=== PATIENT | male | born 1985 | race Caucasian/White ===

== ENCOUNTER 2022-09-24 11:38 | Emergency (ER) | payer BC, SELFPAY ==
[2022-09-24 11:42] VITALS: BP 129/80; PULSE 64; RESP 16; TEMP 36.6; O2SAT 100
--- NOTE | 2022-09-24 13:15 | ED.GENADULT ---
HPI - General Adult General Chief complaint: Unspecified Stated complaint: hemorrhoid pain Time Seen by Provider: 09/24/22 12:57 History of Present Illness HPI narrative: Patient is a 36-year-old male who presents ER with pain around his rectum. Has hemorrhoid hemorrhoids. To schedule follow-up with Dr. Velasquez in 2 days. Had previous hemorrhoids that cannot be excised. Reports he recently played some role hockey which causes pop up. Previously it had been because he had not picked up a heavy case of water bottles, and then prior to that it occurred after doing a tough mudder competition. Related Data Allergies Allergy/AdvReac Type Severity Reaction Status Date / Time Cultivated Oat Pollen Allergy Mild unknown Uncoded 09/24/22 11:40 Review of Systems Constitutional: Constitutional: Reports no additional constitutional complaints Gastrointestinal: Gastrointestinal: Denies abdominal pain, Denies constipation, Denies diarrhea, Denies vomiting and Reports other (Hemorrhoid) Genitourinary: Genitourinary: Reports no additional male genitourinary complaints [facility] Past Medical History Medical History (Updated 09/24/22 @ 20:18 by Daniel Gamble MD) Asthma External hemorrhoid Family History Family History Father Depression Hypertension Family history of elevated blood lipids Family history of diabetes mellitus in first degree relative Family history of premature coronary heart disease Sibling Family history of diabetes mellitus in first degree relative Social History Social History Social History: Single Smoking packs per day: 2 Smoking cigarettes per day: 40.0 Years smoked: 7 Smoking pack-years: 14.00 Smoking status: Former smoker Tobacco type: cigarettes Second hand tobacco smoke exposure: No Smoking end date: 04/01/11 Alcohol intake: current Alcohol use details: Occasionally Substance use: never Substance use type: does not use Lack of Transportation: No Lack of Food: Never True Current Housing: I Have Housing Concerned About Future Housing: No Difficulty Paying Gas/Electric Bills: No Difficulty Paying for Meds: No Currently Unemployed: No Education: Decline to Answer Difficulty w/ Childcare or Family Care: No Living arrangements: with family Additional living arrangements comments: Pt lives with girlfriend Occupation/Education: occupation Gender identity (if verbalized by the patient): Male Sexual Orientation (if Verbalized by the Patient): Straight or Heterosexual Exam Narrative: GENERAL: Well-appearing, well-nourished, and in no acute distress. HEAD: Normocephalic, atraumatic. ENT: Mucous membranes moist. Rectal: Inflamed hemorrhoid at the 6 o'clock position when lying in the left lateral decubitus position. No thrombosis or hemorrhage. EXTREMITIES: Normal range of motion. No edema. SKIN: Warm, dry, no rash. NEURO: Alert and oriented x3. PSYCH: Normal mood and affect. Course Course Emergency Course: Patient will be given topical steroids as that is only treatment he is not use. He has been using Preparation H with lidocaine as well as witch derrick pads and sitz bath's. He has follow-up in 2 days with general surgery. He has not been constipated. Vital Signs Vital signs: Vital Signs Temperature 98 F 09/24/22 11:42 Pulse Rate 64 09/24/22 11:42 Respiratory Rate 16 09/24/22 11:42 Blood Pressure 129/80 09/24/22 11:42 Pulse Oximetry 100 09/24/22 11:42 Oxygen Delivery Room Air 09/24/22 11:42 Temperature 98 F 09/24/22 11:42 Pulse Rate 64 09/24/22 11:42 Respiratory Rate 16 09/24/22 11:42 Blood Pressure 129/80 09/24/22 11:42 Pulse Oximetry 100 09/24/22 11:42 Oxygen Delivery Room Air 09/24/22 11:42 Medical Decision Making Vital Signs Vital Signs: Vital Signs
== END 2022-09-24 13:23 | disposition home or self-care (01) ==
PROVIDERS: Emergency Provider Emergency Medicine; PCP Family Medicine
DX: K64.9 Unspecified hemorrhoids (principal); Z87.891 Personal history of nicotine dependence
CPT/HCPCS: 99283

== ENCOUNTER 2022-10-04 02:25 | Day surgery (SDC) | payer BC, SELFPAY ==
[2022-09-27 10:43] VITALS: BMI 23.6
--- NOTE | 2022-09-27 10:46 | PC.NURSE ---
Report to the Outpatient Waiting Room, entrance under the green pavilion located off [facility], at time 0800 on date 10/04/22. Planned Procedure Time: 1000. Time changes happen often and if your time is changed the preop area will call you the afternoon before. - You and your visitor will be asked to self-screen and do not enter if you have any COVID symptoms. - A mask is optional within the hospital at this time. Patients may have clear liquids (water, carbonated beverages, clear teas, apple juice) until 3 hours prior to surgery with a maximum of 20 ounces. - No food from midnight until time of surgery Take the following medications with a SIP of water the morning of surgery: INHALERS DO NOT STOP ANY OF YOUR OTHER PRESCRIPTION MEDICATIONS PRIOR TO SURGERY ?EXCEPT THE FOLLOWING Medications to discontinue per physician: N/A Date to take last dose: N/A Please no make-up, nail yemeni, hairspray, perfume, deodorant, or body powder the day of surgery. No jewelry (including any body piercings) or valuables the day of surgery, leave them at home. Please take a shower or bath the night before, or the morning of, surgery with an antibacterial soap. Wear comfortable, loose fitting clothing. - Jewelry must be removed prior to entering the operating room. Rings and piercings that are not removed may be cut off. - The hospital will not accept responsibility for valuables. - Please leave all valuables, including medications, at home the day of surgery. If you are going home after surgery, a licensed route sales delivery drivers supervisor must drive you home. - NO public transportation without another adult if you receive anesthesia. - We recommend that an adult stay with you for 24 hours following discharge. - We also recommend that you do not drive, make important decision, drink alcoholic beverages, or take any drugs that were not prescribed by your health care provider for at least 24 hours after your discharge time. Follow any additional instructions given to you from your surgeon. If you or anyone in your household have experienced Covid symptoms in the past week, please notify your surgeon or the nurse liaison at the phone number below for possible testing. Telephone instructions given to PT - TAVON SCHULZ and asked if any additional questions and then verbalized understanding. Patient advised to call surgeon office or pre surgery nurse liaison [phone] if any additional questions.
[2022-10-04] VITALS (9 sets, daily range): BP systolic 104–133; BP diastolic 56–78; PULSE 66–91; RESP 10–16; TEMP 36.6–36.8; O2SAT 96–99
[2022-10-04] MEDS: ACETAMINOPHEN 500 MG TABLET 1000 MG PO (08:25)
[2022-10-04] MEDS: LACTATED RINGERS 1,000 ML 30 ML IV CONT (08:32)
[2022-10-04] MEDS: KETOROLAC 15 MG/ML VIAL (*BKC) IV PUSH ×2 (09:25→10:56)
--- NOTE | 2022-10-04 09:34 | WPDANESEPPF ---
Anes - Initial Pre Proc Eval Procedure: Operation Date: 10/04/22 10:00 Proposed Procedures p Excisional Hemorrhoidectomy - Jluis Velasquez MD Date/Time: 10/04/22 09:34 Surgeon: Jluis Velasquez MD Pre Op Diagnosis: thrombosed internal hemorrhoid Patient Data Age: 36 Gender: M Height: 1.78 m Weight: 76.5 kg Last Vital Signs Temp 98.3 F 10/04/22 08:32 Pulse 66 10/04/22 08:32 Resp 16 10/04/22 08:32 BP 104/72 10/04/22 08:32 Pulse Ox 99 10/04/22 08:32 O2 Del Method Room Air 10/04/22 08:32 Allergies Allergy/AdvReac Type Severity Reaction Status Date / Time Cultivated Oat Pollen Allergy Mild unknown Uncoded 10/04/22 08:08 Home Medications Medication Instructions Recorded Confirmed Type albuterol sulfate 90 mcg/actuation See Rx Instructions .Route 06/06/22 10/04/22 Rx aerosol inhaler .COMPLEX #6.7 grams fluticasone furoate 100 See Rx Instructions .Route 06/06/22 10/04/22 Rx mcg-vilanterol 25 mcg/dose .COMPLEX #60 ea inhalation powder (Breo Ellipta) witch derrick 50 % topical pads 1 pad topical BID PRN skin 08/02/22 09/27/22 Rx (Hemorrhoidal (witch derrick)) irritation #48 ea hydrocortisone 2.5 % topical cream 1 applic RECTAL BID PRN 09/24/22 09/27/22 Rx with perineal applicator hemorrhoids #30 grams (Proctozone-HC) Patient hx anesthesia problems: none Family hx anesthesia problems: none Results Review: All pre-operative results and documents have been reviewed as part of the pre-operative evaluation. [facility] Past Medical History Medical History Asthma External hemorrhoid Family History Family History Father Depression Hypertension Family history of elevated blood lipids Family history of diabetes mellitus in first degree relative Family history of premature coronary heart disease Sibling Family history of diabetes mellitus in first degree relative Social History Social History Social History: Single Smoking packs per day: 1 Smoking cigarettes per day: 20.0 Years smoked: 5 Smoking pack-years: 5.00 Smoking status: Former smoker Tobacco type: cigarettes Second hand tobacco smoke exposure: No Smoking end date: 04/01/12 Alcohol intake: current Alcohol use details: VERY RARE Substance use: current Substance use type: marijuana Lack of Transportation: No Lack of Food: Never True Current Housing: I Have Housing Concerned About Future Housing: No Difficulty Paying Gas/Electric Bills: No Difficulty Paying for Meds: No Currently Unemployed: No Education: Decline to Answer Difficulty w/ Childcare or Family Care: No Living arrangements: with friend(s) Additional living arrangements comments: Pt lives with girlfriend Occupation/Education: occupation Gender identity (if verbalized by the patient): Male Sexual Orientation (if Verbalized by the Patient): Straight or Heterosexual Spiritual care concerns: No Anes - Eval Final PreProcedure Day of Procedure 10/04/22 09:34 Patient weight: normal Heart: regular rate and rhythm Lungs: clear to auscultation Airway: Mallampati scale class II Neurological: alert and oriented Last oral intake: >/= 8 hours ASA classification: II Emergent: no Anesthetic plan: proceed Anesthesia type and monitoring: general ETT and standard monitoring Results Review: All pre-operative results and documents have been reviewed as part of the pre-operative evaluation. Informed Consent: The patient's anesthetic plan and its attendant risks and benefits were discussed with the patient/family/POA. Questions were solicited and answers provided to the satisfaction of the patient/family/POA.
--- NOTE | 2022-10-04 10:08 | WPDHPUPDATE1 ---
History and Physical Update Update Date/Time: 10/04/22 10:08 History and Physical has been reviewed, including an updated exam of the patient. There are NO changes in the patient's condition. Risks, benefits, and alternatives have been discussed and questions answered. Patient agrees to proceed with procedure.
[2022-10-04] MEDS: ceFAZolin 2 GM/D5W 50 ML 2 GM/50 ML BAG IVPB (10:14)
[2022-10-04] MEDS: LIDOCAINE HCL 2% GEL UROJET 10 ML PKG MUCOUS MEM (10:59)
--- NOTE | 2022-10-04 11:18 | W.PM.PROC2 ---
Procedure Note - Detailed Date of Procedure 10/04/22 Pre-op Diagnosis Thrombosed internal hemorrhoid Post-op Diagnosis Same Procedure Performed Evaluation under anesthesia with excisional hemorrhoidectomy x1 and banding of internal hemorrhoid x1 Surgeon Jluis Velasquez MD Anesthesia General Indications Patient presented with a thrombosed hemorrhoid which initially resolved but then had recurrence of the thrombosed hemorrhoid in the same place. Presents now for excision of the thrombosed hemorrhoid. Findings Left lateral column there was a thrombosed internal hemorrhoid at the 7 o'clock position with the patient prone. An additional grade 2 to grade 3 internal hemorrhoid in the right lateral position at the 2 o'clock position was not thrombosed. Description of Procedure After informed consent was obtained patient brought to the operating room was placed under general endotracheal anesthesia on the gurney and then turned into the prone susy-knife position on the operating table. The buttocks were then taped apart to expose the perianal region and then the area was then prepped and draped in usual sterile fashion. I 1st started by performing a gentle dilation of the anal sphincters and then the bivalve anal speculum was placed into the anal canal. Circumferential evaluation of the anal canal was performed revealing no anal canal masses. There was the known thrombosed hemorrhoid at 7:00 position on the left lateral side. He also had non thrombosed grade 2 to grade 3 internal hemorrhoid at the 2 o'clock position on the right lateral side. I 1st started by injecting 0.25 Marcaine local anesthetic underneath the thrombosed hemorrhoid at the 7 o'clock position. The hemorrhoid was then held with an Allis clamp and then a scalp was then used to incise the tissue on either side of the hemorrhoid out to the perianal skin in a elsy configuration after seeing a 2 0 chromic suture at the apex of the hemorrhoid. I then utilized electrocautery to develop the plane and then spread underneath the hemorrhoid utilizing Metzenbaum scissors. The internal sphincter muscle was preserved without any injury. I then completely excised off the thrombosed hemorrhoid. It was passed off table sent to pathology for examination. I then proceeded to close the incision by running the 2-0 chromic suture placed previously in a locking fashion out towards the anal verge. Once I reached this area then transition to using a 3-0 Vicryl suture to approximate the skin edges with a running and locking suture. The suture line was hemostatic. I then proceeded to treat the right-sided hemorrhoid at the 2 o'clock position. I elected to go ahead and just do a rubber-band ligation of this hemorrhoid. Local anesthetic mixture was injected underneath the hemorrhoid and then a curved Allis clamp was used to hold the hemorrhoid tissue. The hemorrhoid band bilingual research interviewer was then used to place 2 rubber bands onto the hemorrhoid tissue. I then irrigated out the anal canal with sterile saline solution. Hemostasis was good. I then placed a Gelfoam soaked with viscous lidocaine into the anal canal. I then performed a perianal block with 0.2% Marcaine and a bilateral pudendal nerve block with the same local anesthetic mixture. The area was cleaned and sterile dressing was applied. The patient tolerated the procedure well no complications. All sponges, needles, and instrument counts were correct at the end procedure. EBL was _25__cc. The patient was awakened and taken to recovery in stable and satisfactory condition. Implants None Estimated Blood Loss 25 Drains No Packing Yes (Gelfoam in the anal canal) Pathology Yes Complications No immediate complications Condition Stable Disposition PACU [facility] Billing Surgery - Charge Forward: Surgery Billing
== END 2022-10-04 12:58 | disposition home or self-care (01) ==
PROVIDERS: PCP Family Medicine; Visit Provider Surgery
PROC: (CPT 46320; principal; 2022-10-04 10:00)
DX: K64.5 Perianal venous thrombosis (principal); K64.2 Third degree hemorrhoids; J45.909 Unspecified asthma, uncomplicated; Z79.51 Long term (current) use of inhaled steroids; Z87.891 Personal history of nicotine dependence; F12.90 Cannabis use, unspecified, uncomplicated
CPT/HCPCS: 46320; 88304; A9270; J0330; J0690; J1100; J1170; J1885; J2250; J2405; J2704; J3010; J7120

== ENCOUNTER 2025-01-12 15:38 | Outpatient (CLI) | payer BC, SELFPAY ==
--- NOTE | ~2025-01-12 | XR_ITS ---
[id number] Indication: M54.2 - Cervicalgia Comparison: None Findings: The vertebral heights are intact. No fracture or subluxation. The disc heights are intact. Soft tissues unremarkable Impression: No acute abnormality. Reviewed, dictated and finalized at location P. Impression: No acute abnormality.
== END 2025-01-12 15:39 | disposition home or self-care (01) ==
LOC: MICIMG 15:39
PROVIDERS: PCP Family Medicine; Visit Provider Physician Assistant
DX: M54.2 Cervicalgia (principal)
CPT/HCPCS: 72040